=== PATIENT | female | born 1990 | race African-American/Black ===

== ENCOUNTER 2016-10-01 12:55 | Emergency (ER) | payer MEDICAID ==
[~2016-10-01] VITALS: Ht 160 cm; Wt 46.0 kg
[~2016-10-01 12:55] MED LIST: PREN-88; PREN1TAB23 PO
[2016-10-01 13:07] VITALS: BP 116/62
[2016-10-01] MEDS ORDERED: DIPHENHYDRAMINE 25MG CAPSULE PO ONE (14:15)
== END 2016-10-01 14:42 | disposition home or self-care (01) ==
LOC: ER 14:40
DX: L29.9 Pruritus, unspecified (principal); B86 Scabies; F15.10 Other stimulant abuse, uncomplicated; F17.210 Nicotine dependence, cigarettes, uncomplicated; F12.10 Cannabis abuse, uncomplicated
CPT/HCPCS: 99282; Z7610; Q0163

== ENCOUNTER 2016-12-10 01:21 | Emergency (ER) | payer MEDICAID | END 2016-12-10 03:32 | disposition left against medical advice (07) | LOC: ER 03:22 | DX: Z53.21 Procedure and treatment not carried out due to patient leaving prior to being seen by health care provider (principal) ==

== ENCOUNTER 2020-07-26 19:17 | Emergency (ER) | payer MEDICAID, OTHER ==
[~2020-07-26] VITALS: Ht 160 cm; Wt 64.0 kg
[2020-07-26] MEDS ORDERED: CLINDAMYCIN HCL 150MG CAPSULE PO SCH (21:30)
[2020-07-26] MEDS ORDERED: HYDROCODONE/ACETAMINOPHEN 5/325MG TABLET PO ONE (21:30)
[2020-07-26] MEDS ORDERED: IBUPROFEN 600MG TABLET PO ONE (21:30)
[2020-07-26 21:44] VITALS: BP 110/67
[2020-07-26] MEDS ORDERED: CLIN300C12 MT (21:53)
== END 2020-07-26 21:55 | disposition home or self-care (01) ==
LOC: ER 19:17
DX: L02.412 Cutaneous abscess of left axilla (principal)
CPT/HCPCS: 99284; Z7610